=== PATIENT | male | born 1965 | race Native Hawaiian/Other Pacific Islander ===

== ENCOUNTER 2018-07-30 00:04 | Emergency (ER) | payer OTHER ==
[~2018-07-30] VITALS: Ht 170.2 cm; Wt 77.1 kg
[~2018-07-30 00:04] MED LIST: AMBIEN5 MG PO; AMITRIPTYLIN50 MG PO; AMOXICILLIN250 M2 PO; FLONASE AL50 MCG/ACT; HYDR5TAB9 PO; LEXAPRO20 MG PO; LUMIGAN0.01 % OP; LYRICA50 MG PO; PROAIR HFA IN; SENOKOT8.6 MG PO; TAMS0.4C PO; TRAM50TA PO; [UNRECOGNIZED DRUG - OTHER] MT
[2018-07-30 01:11] VITALS: BP 115/88; TEMP 97.8
[2018-07-30 01:17] LABS: PLATELET COUNT 216 K/uL (142-355)
[2018-07-30 01:24] LABS: POTASSIUM 3.7 mmol/L (3.6-5.2)
[2018-07-30] MEDS ORDERED: DIVA500T2 PO (02:04)
[2018-07-30] MEDS ORDERED: BUSPIRONE10 MG PO (02:04)
[2018-07-30] MEDS ORDERED: GABA300C2 PO (02:05)
[2018-07-30] MEDS ORDERED: AMBIEN5 MG PO (02:06)
[2018-07-30] MEDS ORDERED: HYDR10TA47A PO (02:08)
[2018-07-30] MEDS ORDERED: TIZA4TAB5 PO (02:09)
[2018-07-30] MEDS ORDERED: SEROQUEL200 MG PO (02:10)
[2018-07-30] MEDS ORDERED: ALBU90AE13 INH (02:12)
[2018-07-30] MEDS ORDERED: SEROQUEL25 MG PO (03:14)
== END 2018-07-30 02:22 | disposition other institution (70) ==
LOC: ED 00:04 → EDBD 00:04 → ED 02:22
PROVIDERS: Family Medicine
DX: Z00.8 Encounter for other general examination (principal); F28 Other psychotic disorder not due to a substance or known physiological condition; F91.8 Other conduct disorders
CPT/HCPCS: 36415; 80053; 85027; 93005; 99285

== ENCOUNTER 2019-08-10 18:44 | Emergency (ER) | payer OTHER ==
[~2019-08-10] VITALS: Ht 167.6 cm; Wt 98.0 kg
[~2019-08-10 18:44] MED LIST changes: +ALBU90AE13 INH; +AMBIEN 10MG TAB PO; +BIOFREEZE4 % EX; +BUSP15TAB2 PO; +BUSPIRONE10 MG PO; +DIVA250T2 PO; +DIVA500T2 PO; +ESCI10TA PO; +GABA300C2 PO; +HYDR10TA47 PO; +HYDR10TA47A PO; +QUET100T2 PO; +SEROQUEL200 MG PO; +SEROQUEL25 MG PO; +SEROQUEL300 MG PO; +TIZA4TAB5 PO; +TRAZ50TA36 PO; +VITAMIN D50000 UNIT PO
[2019-08-10 19:20] LABS: PLATELET COUNT 396 K/uL (142-355)
[2019-08-10 19:26] LABS: POTASSIUM 4.3 mmol/L (3.6-5.2); SODIUM 133 mmol/L (136-145)
[2019-08-10 20:02] VITALS: BP 123/67; TEMP 97.5
[2019-08-10] MEDS ORDERED: BENZTROPINE0.5 MG PO (21:08)
[2019-08-10] MEDS ORDERED: DIVA500T2 PO (21:09)
[2019-08-10] MEDS ORDERED: MOBIC15 MG PO (21:09)
[2019-08-10] MEDS ORDERED: CYCL10TA35 PO (21:10)
[2019-08-10] MEDS ORDERED: MELATONIN5 M4 PO (21:11)
[2019-08-10] MEDS ORDERED: MONT10TA PO (21:11)
[2019-08-10] MEDS ORDERED: SEROQUEL50 MG PO (21:12)
[2019-08-10] MEDS ORDERED: TRAZ50TA36 PO (21:13)
== END 2019-08-10 20:02 | disposition other institution (70) ==
LOC: ED 18:44
PROVIDERS: Family Medicine
DX: R46.89 Other symptoms and signs involving appearance and behavior (principal); F41.8 Other specified anxiety disorders; I10 Essential (primary) hypertension; Z04.6 Encounter for general psychiatric examination, requested by authority
CPT/HCPCS: 36415; 80053; 81000; 85027; 93005; 99283